=== PATIENT | female | born 1970 | race American Indian/Alaskan Native ===

== ENCOUNTER 2017-10-09 11:47 | Emergency (ER) | payer BC, OTHER ==
[~2017-10-09] VITALS: Ht 160 cm; Wt 73.0 kg
[~2017-10-09 11:47] MED LIST: BENZONATATE100 MG PO; FIORICET 50-321 EACH PO; LISINOPRIL40 MG PO; PHENERGAN25 MG/1 M1 PO; PSEUDOEPHEDRINE60 MG PO; SEPTRA DS TABL1 EACH PO; TRIAMTERENE-HC1 EAC1 PO; TYLENOL325 MG PO
[2017-10-09] MEDS ORDERED: LOSARTAN POTAS100 MG PO (12:11)
[2017-10-09] MEDS ORDERED: DOXYCYCLINE HY100 MG PO (14:34)
[2017-10-09] MEDS ORDERED: ONDANSETRON ODT8 MG PO (14:34)
[2017-10-09] MEDS ORDERED: FLAGYL500 MG PO (14:34)
[2017-10-09] MEDS ORDERED: NORCO 5-325 TA1 EACH PO (14:34)
== END 2017-10-09 15:17 | disposition home or self-care (01) ==
LOC: ED 11:47
DX: N73.9 Female pelvic inflammatory disease, unspecified (principal); I10 Essential (primary) hypertension; F17.200 Nicotine dependence, unspecified, uncomplicated; Z88.1 Allergy status to other antibiotic agents; Z88.0 Allergy status to penicillin; Z79.899 Other long term (current) drug therapy
CPT/HCPCS: 74177; 80053; 81001; 84703; 85025; 87491; 87591; 96361; 96374; 96375; 99284; J0696; J1170; J2405; J7030; Q9967

== ENCOUNTER 2017-10-11 04:36 | Emergency (ER) | payer BC, OTHER ==
[~2017-10-11] VITALS: Ht 160 cm; Wt 73.0 kg
[~2017-10-11 04:36] MED LIST changes: +DOXYCYCLINE HY100 MG PO; +FLAGYL500 MG PO; +LOSARTAN POTAS100 MG PO; +NORCO 5-325 TA1 EACH PO; +ONDANSETRON ODT8 MG PO
== END 2017-10-11 06:27 | disposition home or self-care (01) ==
LOC: ED 04:36
DX: R10.31 Right lower quadrant pain (principal); I10 Essential (primary) hypertension; F17.200 Nicotine dependence, unspecified, uncomplicated; Z88.0 Allergy status to penicillin; Z88.1 Allergy status to other antibiotic agents; Z79.899 Other long term (current) drug therapy
CPT/HCPCS: 80053; 81001; 83690; 84703; 85025; 96374; 99283; J2405

== ENCOUNTER 2018-04-16 19:48 | Emergency (ER) | payer BC, OTHER ==
[~2018-04-16] VITALS: Ht 152.4 cm; Wt 74.8 kg
[2018-04-16] MEDS ORDERED: HYDROCHLOROTH12.5 M1 PO (20:01)
--- NOTE | 2018-04-17 13:23 | EKG ---
[facility] [address] [facility] [place], [place] [address] Signed Normal sinus rhythm Normal ECG No previous ECGs available Confirmed by GERMANIA PHELAN MD ([id number]) on 04/17/2018 1:23:17 PM Electronically Signed By: GERMANIA PHELAN MD 04/17/18 1323 PATIENT NAME: DANIE GILL Electrocardiogram DATE OF : 66 PHYSICIAN: GERMANIA PHELAN MD REPORT #: [id number] REPORT IS CONFIDENTIAL AND NOT TO BE RELEASED WITHOUT AUTHORIZATION
== END 2018-04-16 21:55 | disposition home or self-care (01) ==
LOC: ED 19:48
DX: A08.4 Viral intestinal infection, unspecified (principal); I10 Essential (primary) hypertension; Z87.891 Personal history of nicotine dependence; Z88.0 Allergy status to penicillin; Z88.1 Allergy status to other antibiotic agents; Z79.899 Other long term (current) drug therapy
CPT/HCPCS: 80053; 81001; 84703; 85025; 93005; 93010; 96361; 96374; 96375; 99285-25; J1200; J1885; J2405; J2765; J7030

== ENCOUNTER 2019-09-10 07:21 | Day surgery (SDC) | payer BC, OTHER ==
[~2019-09-10] VITALS: Ht 152.4 cm; Wt 81.2 kg
[~2019-09-10 07:21] MED LIST changes: +ARTIFICIAL TEAR15 M6 OP; +HYDROCHLOROTH12.5 M1 PO; +ZYRTEC10 M3 PO
[2019-09-10] MEDS ORDERED: SUDOGEST30 MG PO (07:41)
--- NOTE | 2019-09-10 09:01 | NUR ---
09/10/19 0901 Moriah Daigle 0833 PATIENT ARRIVES TO PACU AWAKE OFF/ON, BUT DROWSY. RESP EVEN AND UNLABORED, ROOM AIR SATS >93%. PATIENT REPOSITIONS SELF TO BACK. HOB ELEVATED.
--- NOTE | 2019-09-10 10:45 | OR ---
[facility] [address] [place], [place] [address] Signed DATE OF OPERATION: 09/10/2019 SURGEON: Joseluis Ridley MD PREOPERATIVE DIAGNOSIS: Screening. POSTOPERATIVE DIAGNOSES: 1. A 5 mm polyp at 20 cm. 2. Minimal to moderate internal and external hemorrhoids. PROCEDURE: Colonoscopy with hot biopsy. ESTIMATED BLOOD LOSS: None. INDICATIONS: Danie is a 48-year-old female, asked to see me for her initial screening colonoscopy. She has no lower GI complaints. There is no family history of colon cancer or polyps. In the office, I gave Danie a pamphlet on colonoscopy and we looked at that together in detail. She understands the nature of the test along with the risks including, but not limited to gas bloating, crampy abdominal pain, bleeding, perforation requiring surgery, and missed diagnosis. She also understands the need for IV conscious sedation. She had expressed understanding and wished to proceed. DESCRIPTION OF PROCEDURE: Danie was taken into our endoscopy suite and placed in the left lateral decubitus position. She was given IV sedation with 6 mg of Versed and 100 mcg of fentanyl. A digital rectal exam was performed and this showed small circumferential external hemorrhoids. She has good sphincter tone. The adult colonoscope was introduced and advanced all around into the cecum under direct visualization of camera. It took some extra sedation and abdominal compression in order to advance the scope directly into the cecum itself. We could easily see the appendiceal orifice and the ileocecal valve. The scope was slowly withdrawn. The entire colon was unremarkable except for a small polyp in the distal sigmoid colon. It was easily removed with the help of hot biopsy forceps. The rectum was unremarkable. Upon retroflexion of scope, she does have small internal hemorrhoid columns as well. After this, the gas was suctioned out and the colonoscope removed. Danie tolerated the procedure quite well. Electronically Signed By: JOSELUIS RIDLEY MD 09/10/19 1045 PATIENT NAME: DANIE GLIL OPERATIVE REPORT DATE OF : 66 REPORT #: [id number] PHYSICIAN: JOSELUIS RIDLEY MD PCP: NO PRIMARY CARE PHYSICIAN REPORT IS CONFIDENTIAL AND NOT TO BE RELEASED WITHOUT AUTHORIZATION [address] [address] Signed RECOMMENDATIONS: I will see Danie back in my office in 7 to 14 days to review her results. Joseluis Ridley MD ALB/DENYL /[id number] cc: MD Jade Pina FNP Copies: JOSELUIS RIDLEY MD ~ Electronically Signed By: JOSELUIS RIDLEY MD 09/10/19 1045 PATIENT NAME: DANIE GILL OPERATIVE REPORT DATE OF : 66 REPORT #: [id number] PHYSICIAN: JOSELUIS RIDLEY MD PCP: NO PRIMARY CARE PHYSICIAN REPORT IS CONFIDENTIAL AND NOT TO BE RELEASED WITHOUT AUTHORIZATION
--- NOTE | 2019-09-11 11:28 | PATH ---
[facility] [facility] [address] [place], [place] [address] Signed SPECIMEN(S): A COLON POLYP AT 20 CM SPECIMEN SOURCE: A. COLON POLYP AT 20 CM CLINICAL HISTORY: Pre: Colon screening. Post: Internal and external hemorrhoids, colon polyp. MICROSCOPIC DESCRIPTION: Histologic sections of all submitted blocks are examined by light microscopy. These findings, together with the gross examination, support the pathologic diagnosis. FINAL PATHOLOGIC DIAGNOSIS: Colon, polyp at 20 cm, polypectomy: - Hyperplastic polyp. - Negative for dysplasia or malignancy. NAL:cml:C2NR GROSS DESCRIPTION: The specimen, labeled "CR, 1," and designated on the requisition "colon polyp at 20 cm," is received in formalin and consists of one cuevas soft tissue polypoid fragment that measures 0.3 cm in greatest dimension. The specimen is entirely submitted in cassette (A1). AT (under the direct supervision of a pathologist) The Gross Description was prepared using a voice recognition system. The report was reviewed for accuracy; however, sound-alike word errors, addition and/or deletions may occur. If there is any question about this report, please contact Client Services. PERFORMING LABORATORY: The technical component was performed by [facility], [address] [place] [id number] (Emergency Room Tech: Jennifer De Dios MD; CLIA# [id number]). [facility] [address] [address] (CLIA# [id number]). Diagnostician: Beverley Robledo MD Pathologist Electronically Signed 09/11/2019 PATIENT NAME: DANIE GILL PATHOLOGY DATE OF : 66 REPORT #: [id number] PHYSICIAN: [facility] PCP: NO PRIMARY CARE PHYSICIAN REPORT IS CONFIDENTIAL AND NOT TO BE RELEASED WITHOUT AUTHORIZATION [address] [address] Signed Copies: ~ PATIENT NAME: DANIE GILL PATHOLOGY DATE OF : 66 REPORT #: [id number] PHYSICIAN: [facility] PCP: NO PRIMARY CARE PHYSICIAN REPORT IS CONFIDENTIAL AND NOT TO BE RELEASED WITHOUT AUTHORIZATION
== END 2019-09-10 09:40 | disposition home or self-care (01) ==
LOC: OPS 07:21 → DS 07:21 → OPS 08:15 → DS 08:15 → OPS 09:40
PROVIDERS: Colon & Rectal Surgery
PROC: 0DBE8ZZ Excision of Large Intestine, Via Natural or Artificial Opening Endoscopic (ICD-10-PCS; principal; 2019-09-10 08:15)
DX: Z12.11 Encounter for screening for malignant neoplasm of colon (principal); K63.5 Polyp of colon; K64.8 Other hemorrhoids; K64.4 Residual hemorrhoidal skin tags; Z88.8 Allergy status to other drugs, medicaments and biological substances; Z88.1 Allergy status to other antibiotic agents; Z88.0 Allergy status to penicillin; Z88.2 Allergy status to sulfonamides; Z79.899 Other long term (current) drug therapy
CPT/HCPCS: 84703; 99153; G0500; J2250; J3010; J7121

== ENCOUNTER 2020-08-31 14:11 | Emergency (ER) | payer OTHER, BC ==
[~2020-08-31] VITALS: Ht 152.4 cm; Wt 79.4 kg
[~2020-08-31 14:11] MED LIST changes: +SUDOGEST30 MG PO
[2020-08-31] MEDS ORDERED: POTASSIUM CHLO10 ME1 PO (14:25)
[2020-08-31] MEDS ORDERED: OMEPRAZOLE20 MG PO (14:25)
[2020-08-31] MEDS ORDERED: VITAMIN D310 MC4 PO (14:26)
[2020-08-31] MEDS ORDERED: CYCLOBENZAPRINE10 MG PO (14:49)
== END 2020-08-31 14:55 | disposition home or self-care (01) ==
LOC: ED 14:11
DX: S40.012A Contusion of left shoulder, initial encounter (principal); S20.214A Contusion of middle front wall of thorax, initial encounter; V43.52XA Car driver injured in collision with other type car in traffic accident, initial encounter; I10 Essential (primary) hypertension; Z88.0 Allergy status to penicillin; Z88.1 Allergy status to other antibiotic agents; Z88.2 Allergy status to sulfonamides; Z79.899 Other long term (current) drug therapy
CPT/HCPCS: 99283